=== PATIENT | male | born 1960 | race African-American/Black ===

== ENCOUNTER 2016-12-27 19:47 | Emergency (ER) | payer OTHER ==
[2016-12-27] MEDS ORDERED: Lidocaine 1% w/Epinephrine 1:200K 30 ML VIAL ONE (20:01)
[2016-12-27] MEDS ORDERED: Sulfameth/Trimethoprim DS 800-160mg TAB ONE (20:33)
== END 2016-12-27 20:45 | disposition home or self-care (01) ==
LOC: ERS 19:47
DX: S65.911A Laceration of unspecified blood vessel at wrist and hand level of right arm, initial encounter (principal); S61.511A Laceration without foreign body of right wrist, initial encounter; E78.5 Hyperlipidemia, unspecified; I10 Essential (primary) hypertension; W25.XXXA Contact with sharp glass, initial encounter
CPT/HCPCS: 12032